=== PATIENT | female | born 1970 | race Caucasian/White ===

== ENCOUNTER 2020-07-03 09:59 | Emergency (ER) | payer OTHER ==
[~2020-07-03] VITALS: Ht 167.6 cm; Wt 63.5 kg
[2020-07-03 10:15] VITALS: BP 146/78
[2020-07-03 11:56] VITALS: BP 146/78
== END 2020-07-03 11:57 | disposition home or self-care (01) ==
LOC: MED 09:59
DX: T85.848A Pain due to other internal prosthetic devices, implants and grafts, initial encounter (principal)
CPT/HCPCS: 71250; 99284